=== PATIENT | male | born 1970 | race African-American/Black ===

== ENCOUNTER 2024-02-04 11:08 | Outpatient (CLI) | payer OTHER, SELFPAY ==
[2024-02-04 12:54] LABS: Alanine Aminotransferase 29 U/L (6-50); Albumin Level 4.7 g/dL (3.5-5.1); Alkaline Phosphatase 90 U/L (38-126); Anion Gap 8 mmol/L (4-12); Aspartate Amino Transferase 48 U/L (17-59); Blood Urea Nitrogen 20 mg/dL (9-20); Carbon Dioxide 33 mmol/L (22-30); Chloride 94 mmol/L (98-107); Cholesterol 218 mg/dL (0-200); Estimated Glomerular Filt Rate > 60; Glucose 111 mg/dL (65-110); HDL Direct 91 mg/dL; Potassium 3.1 mmol/L (3.4-5.0); Sodium 135 mmol/L (137-145); Triglycerides 71 mg/dL (<150)
[2024-02-04 13:05] LABS: LDL Cholesterol Direct 108 mg/dL
[2024-02-04 13:22] LABS: Prostate Specific Antigen 1.4 ng/mL (< OR = 4.0)
== END 2024-02-04 11:09 | disposition home or self-care (01) ==
LOC: ANHGOSHLAB 11:09
PROVIDERS: PCP Family Medicine; Visit Provider Family Medicine
DX: I10 Essential (primary) hypertension (principal); Z13.220 Encounter for screening for lipoid disorders; Z12.5 Encounter for screening for malignant neoplasm of prostate
CPT/HCPCS: 36415; 80053; 80061; 84153; G0103